=== PATIENT | male | born 1985 | race Caucasian/White ===

== ENCOUNTER 2019-12-20 19:54 | Emergency (ER) | payer OTHER ==
[~2019-12-20] VITALS: Ht 167.6 cm; Wt 63.5 kg
--- NOTE | 2019-12-20 20:00 | NUR ---
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 PT AAOX4, VSS, RESPIRATIONS EVEN AND UNLABORED ON RA W/ NAD NOTED. PT CHANGED INTO GOWN, BELONGINGS PLACED TO LOCKERS, SUICIDE PRECAUTIONS IMPLEMENTED. SITTER AT BEDSIDE FOR SAFETY.
--- NOTE | 2019-12-20 20:03 | NUR ---
URINE COLLECTED AND SENT TO LAB
[2019-12-20] MEDS ORDERED: OLANZAPINE 5 MG TABLET ONE (20:10)
--- NOTE | 2019-12-20 20:14 | NUR ---
DRAMATIC CRITIC AT BEDSIDE FOR BLOOD DRAW
[2019-12-20 20:28] LABS: BASOPHILS # (AUTO) 0.1 /CMM (0.0-0.2); BASOPHILS % (AUTO) 1.6 % (0.0-2.0); EOSINOPHILS % (AUTO) 0.2 % (0.0-6.0); HEMATOCRIT 42 % (39-51); HEMOGLOBIN 13.6 g/dL (13.5-17.5); LYMPHOCYTES # (AUTO) 1.8 /CMM (0.8-4.8); LYMPHOCYTES % (AUTO) 23.2 % (20.0-44.0); MEAN CORPUSCULAR HGB CONC 33 g/dl (31.0-36.0); MEAN CORPUSCULAR VOLUME 92 fL (80-96); MONOCYTES # (AUTO) 0.6 /CMM (0.1-1.30); MONOCYTES % (AUTO) 7.8 % (2.0-12.0); NEUTROPHILS # (AUTO) 5.2 /CMM (1.8-8.9); NEUTROPHILS % (AUTO) 67.2 % (43.0-81.0); PLATELET COUNT (AUTO) 333 /CMM (150-450); RED BLOOD CELL COUNT(AUTO) 4.56 MIL/uL (4.5-6.0); WHITE BLOOD COUNT (AUTO) 7.8 K/uL (4.3-11.0)
[2019-12-20 20:29] LABS: APPEARANCE,URINE Slightly Cloudy (CLEAR); BILIRUBIN,URINE Negative (NEGATIVE); BLOOD, URINE Small Ery/uL (NEGATIVE); COLOR,URINE Light yellow (YELLOW); KETONES,URINE Trace (NEGATIVE); LEUKOCYTE ESTERASE ,URINE Negative (NEGATIVE); NITRITE, URINE Negative (NEGATIVE); PROTEIN,URINE 30 mg/dl (NEGATIVE); UGLUCOSE Negative (NEGATIVE); UROBILINOGEN,URINE 0.2 EU/dL (0.2)
[2019-12-20] MEDS ORDERED: SERTRALINE HCL 50 MG TABLET PO ONE (20:30)
[2019-12-20] MEDS ORDERED: OLANZAPINE 5 MG TABLET PO ONE (20:30)
[2019-12-20 20:34] LABS: CALCIUM, SERUM 9.3 mg/dL (8.5-10.1); CARBON DIOXIDE 23 mmol/L (21-32); CHLORIDE 101 mmol/L (98-107); CREATININE 1.3 mg/dL (0.6-1.3); GLUCOSE 85 mg/dL (74-106); POTASSIUM 3.8 mmol/L (3.5-5.1); SODIUM SERUM 139 mmol/L (136-145); UREA NITROGEN, BLOOD 41 mg/dL (7-18)
[2019-12-20 20:40] LABS: ACETAMINOPHEN < 2 ug/ml (10-30); ALANINE AMINOTRANSFERASE 55 U/L (12-78); ALBUMIN 4.5 g/dL (3.4-5.0); ALCOHOL, BLOOD < 3 mg/dL (0-0); ALKALINE PHOSPHATASE 78 U/L (46-116); ASPARTATE AMINOTRANSFERASE 126 U/L (15-37); BILIRUBIN,DIRECT 0.3 mg/dL (0.0-0.2); BILIRUBIN,TOTAL 1.8 mg/dL (0.2-1.0); SALICYLATE < 0.2 mg/dL (2.8-20.0); TOTAL PROTEIN, SERUM 8.5 g/dL (6.4-8.2)
[2019-12-20 20:42] LABS: BACTERIA,URINE Rare /HPF (None Seen); RBC,URINE NONE SEEN /HPF (0-2); SQUAMOUS EPITHELIAL CELL,UR Few /HPF (None Seen); WBC,URINE NONE SEEN /HPF (0-3)
--- NOTE | 2019-12-20 21:43 | NUR ---
COVID SWAB COLLECTED AND SENT TO LAB
--- NOTE | 2019-12-20 21:53 | NUR ---
PATIENT ACCEPTED TO [facility] BY DR SOL. BILLY 16-A. # FOR REPORT [phone]
--- NOTE | 2019-12-20 22:13 | NUR ---
COVID NEGATIVE PER LAB
--- NOTE | 2019-12-20 22:20 | NUR ---
REPORT GIVEN TO MIKE CHAN FOR [facility]
[2019-12-20 22:24] VITALS: BP 113/63
--- NOTE | 2019-12-20 22:26 | NUR ---
CALLED [facility] FOR TRANSPORTATION. ETA 45 MINUTES. TRIP #[phone]
--- NOTE | 2019-12-20 23:17 | NUR ---
REPORT GIVEN TO EMS. PT STABLE FOR TRANSFER
[2019-12-21] MEDS ORDERED: SERTRALINE HCL 50 MG TABLET PO SCH (09:00)
== END 2019-12-20 23:33 ==
LOC: ER 19:54
DX: F32.9 Major depressive disorder, single episode, unspecified (principal); R45.851 Suicidal ideations; F15.10 Other stimulant abuse, uncomplicated; E80.6 Other disorders of bilirubin metabolism; Z59.0 Homelessness; E86.0 Dehydration; R79.89 Other specified abnormal findings of blood chemistry; F20.9 Schizophrenia, unspecified; F41.9 Anxiety disorder, unspecified; Z20.828 Contact with and (suspected) exposure to other viral communicable diseases
CPT/HCPCS: 36415; 80048; 80076; 80305; 80307; 80329; 81001; 85025; 87426; 99285; C9803; G0480; 81000-TC